=== PATIENT | male | born 1990 | race Caucasian/White ===

== ENCOUNTER 2017-09-29 10:37 | Emergency (ER) | payer OTHER ==
[~2017-09-29] VITALS: Ht 185.4 cm; Wt 83.9 kg
[2017-09-29 10:58] LABS: ABSOLUTE NEUTROPHILS 4.5 thou/uL (1.4-8.2); BASOPHILS 0.7 % (0.0-2.0); EOSINOPHILS 3.4 % (0.0-3.0); HEMOGLOBIN 14.8 gm/dL (14.0-18.0); LYMPHOCYTES 43.7 % (24.0-44.0); MCH 29.3 pg (26.0-34.0); MCHC 34.4 g/dL (28.0-37.0); MCV 85.1 fL (80.0-100.0); MONOCYTES 8.5 % (1.0-8.0); PLATELET COUNT 368 thou/uL (150-400); POLYS 43.7 % (36.0-66.0); RBC 5.05 mil/uL (4.50-6.00); WBC 10.3 thou/uL (4.0-11.0)
[2017-09-29 11:11] LABS: CALCIUM 9.4 mg/dL (8.5-10.1); CREATININE 1.2 mg/dL (0.7-1.3); POTASSIUM 3.8 mmol/L (3.5-5.1); PROTIME 10.3 Seconds (9.3-11.4)
[2017-09-29 12:20] VITALS: BP 131/71
== END 2017-09-29 12:21 | disposition short-term general hospital (02) ==
LOC: ER 10:37
PROVIDERS: Emergency Medicine
DX: S62.645A Nondisplaced fracture of proximal phalanx of left ring finger, initial encounter for closed fracture (principal); S62.646A Nondisplaced fracture of proximal phalanx of right little finger, initial encounter for closed fracture; X58.XXXA Exposure to other specified factors, initial encounter; Y92.89 Other specified places as the place of occurrence of the external cause; Y93.89 Activity, other specified; Y99.8 Other external cause status